=== PATIENT | female | born 1965 | race Caucasian/White ===

== ENCOUNTER 2022-04-26 18:16 | Emergency (ER) | payer MEDICARE, OTHER, SELFPAY ==
[2022-04-26] VITALS (10 sets, daily range): BP systolic 123–145; BP diastolic 74–88; PULSE 67–90; RESP 14–19; O2SAT 94–99
--- NOTE | ~2022-04-26 | XR_ITS ---
XR chest 1V portable 04/26/2022 19:32 Indication: Status post fall. Chest pain. Procedure: AP portable chest Comparison: No prior studies for comparison. Findings: Shallow inspiration with crowding of the pulmonary vessels. No focal air space disease, pul monary edema, pleural effusion or suspected pneumothorax. Impression: 1: No acute cardiopulmonary disease. Reviewed, dictated and finalized at location A. E DRIVER SALESPERSON Impression: 1: No acute cardiopulmonary disease.
--- NOTE | ~2022-04-26 | CT_ITS ---
EXAMINATION: CT BRAIN W/O DATE: 04/26/2022 19:21 INDICATION: Status post trauma. Head injury. TECHNIQUE: Computed tomography (CT) of the head was performed without intravenous contrast. The dose- length product was 756.67 mGy-cm. Automated exposure control and iterative reconstruction technique w ere employed. COMPARISON: No prior studies for comparison. FINDINGS: Normal brain parenchymal volume for age. Normal menjivar-white differentiation. No acute intrac ranial hemorrhage, infarction, mass or mass effect. There are scattered mild periventricular and subc ortical white matter changes, most likely related to small vessel ischemic disease (microangiopathy). There is intracranial atherosclerosis. No ventriculomegaly or midline shift. Midline sagittal images demonstrate a normal corpus callosum, c raniovertebral junction and sella turcica. Basilar cisterns are patent. Paranasal sinuses and mastoids are pneumatized. No depressed skull fractures. There are nasal fractur es. IMPRESSION: 1. No acute intracranial abnormality. 2: Nasal fractures. Reviewed, dictated and finalized at location A. TRANSITION MGR
--- NOTE | ~2022-04-26 | CT_ITS ---
EXAMINATION: CT facial & cervical spine wo DATE: 04/26/2022 19:22 INDICATION: Status post trauma. Facial pain. TECHNIQUE: Computed tomography (CT) of the maxillofacial region and cervical spine was performed with out intravenous contrast. The dose-length product was 559.97 mGy-cm. Automated exposure control and i terative reconstruction technique were employed. COMPARISON: None FINDINGS: MAXILLOFACIAL CT: There are minimally displaced nasal fractures with overlying soft tissue swelling. There is osteoarth ritis of the temporomandibular joints. No air-fluid levels in the paranasal sinuses. Orbits are intac t. No orbital soft tissue abnormality. No other facial fractures. CERVICAL SPINE CT: Vertebral body heights are maintained. Craniovertebral junction within normal limits. Odontoid proces s is normal. No evidence for perched facet. Spinous processes are normal. There is mild multilevel un cinate hypertrophy. No acute fracture or traumatic malalignment. IMPRESSION: 1. Minimally displaced nasal fractures. 2: No acute abnormality of the cervical spine. Reviewed, dictated and finalized at location A. ERS SALESPERSON
--- NOTE | ~2022-04-26 | XR_ITS ---
XR knee LT 3V 04/26/2022 19:33 Indication: Left knee pain after fall Procedure: 3 views left knee Comparison: No prior studies for comparison. Findings: There is mild tricompartment osteoarthritis of the left knee. No fracture or traumatic maulik lignment. No significant joint effusion. Impression: 1: No acute fracture. Reviewed, dictated and finalized at location A. ITAL CARRIER Impression: 1: No acute fracture.
--- NOTE | 2022-04-26 18:41 | PC.NURSE ---
Patient placed in c-collar and trauma communicated to Dr. Silva.
[2022-04-26] MEDS: ONDANSETRON INJ 4 MG/2 ML VIAL IV PUSH ×2 (18:58→20:39)
[2022-04-26] MEDS: SODIUM CHLORIDE 0.9% IV 1,000 ML 999 ML IV CONT (18:58)
[2022-04-26] MEDS: fentaNYL CITRATE INJ (*CRX) 100 MCG/2 ML VIAL 75 MCG IV PUSH (18:58)
[2022-04-26 19:09] LABS: Basophils Percent Auto 0.5 % (0.2-1.2); Eosinophils Absolute Auto 0.5 K/mm3 (0-0.3); Eosinophils Percent Auto 5.6 % (0-4.4); Hematocrit 39.8 % (37.0-47.0); Hemoglobin 13.2 g/dL (12.0-15.0); Immature Granulocyte Absolute 0.03 K/mm3 (0.00-0.031); Immature Granulocyte Percent A 0.4 % (0-0.5); Lymphocytes Absolute Auto 1.58 K/mm3 (0.9-3.2); Lymphocytes Percent Auto 19.8 % (18.3-44.2); Mean Corpuscular HGB Conc 33.2 g/dl (32-36); Mean Corpuscular Hemoglobin 30.8 pg (26-34); Mean Corpuscular Volume 92.8 fl (80-100); Mean Platelet Volume 9.7 fl (7.4-10.4); Monocytes Percent Auto 12.1 % (2.6-8.5); Neutrophils Absolute Auto 4.9 K/mm3 (1.3-6.7); Neutrophils Percent Auto 61.6 % (45.5-73.1); Platelet Count Result 245 k/mm3 (150-375); Red Blood Count 4.29 M/mm3 (4.2-5.4); Red Cell Distribution Width 12.8 % (11.5-14.5)
[2022-04-26 19:24] LABS: Ethanol 45 mg/dL (<10); INR 1.4; Partial Thromboplastin Time 26.8 SECONDS (22.3-36.8); Prothrombin Time 16.2 Seconds (11.1-14.7)
[2022-04-26 19:25] LABS: Alanine Aminotransferase 22 U/L (6-35); Albumin Level 4.1 g/dL (3.5-5.1); Alkaline Phosphatase 107 U/L (38-126); Anion Gap 9 mmol/L (8-16); Aspartate Amino Transferase 35 U/L (14-36); Bilirubin,Total 0.5 mg/dL (0.2-1.3); Blood Urea Nitrogen 18 mg/dL (7-17); Calcium 8.7 mg/dL (8.4-10.2); Carbon Dioxide 28 mmol/L (22-30); Chloride 104 mmol/L (98-107); Estimated CRCL calculation 75 ml/min; Estimated Glomerular Filt Rate > 60; Glucose 101 mg/dL (65-110); Potassium 3.4 mmol/L (3.4-5.0); Sodium 141 mmol/L (137-145)
--- NOTE | 2022-04-26 19:28 | ED.FALL ---
HPI - Fall General Chief Complaint: Fall Stated Complaint: fall/facial injury Time Seen by Provider: 04/26/22 18:34 History of Present Illness HPI Narrative: Patient is a 56-year-old female presenting after a fall. Patient states that she was walking in the parking lot of [employer] when she tripped on a pothole and fell straight forward. She landed on her face. She did not lose consciousness. She was able to drive home and when her saw the abrasions on her face he made her come to the ER. Patient does admit to having 1 alcoholic beverage today. She complains of facial pain as well as neck pain. No abdominal pain, nausea or vomiting. Complains of pain in her left knee as well. Related Data Allergies Allergy/AdvReac Type Severity Reaction Status Date / Time erythromycin base Allergy Rash Verified 04/26/22 18:32 Sulfa (Sulfonamide Allergy Dyspnea / Verified 04/26/22 18:31 Antibiotics) SOB Review of Systems Review of Systems: All systems reviewed & are unremarkable except as noted in HPI and below Exam Narrative: GENERAL: Female laying in bed with her eyes closed due to pain HEAD: Normocephalic, abrasion to nasal bridge and upper lip EYES: PERRLA and EOMI. ENT: Nares clear, no rhinorrhea or epistaxis. Mucous membranes moist. large laceration through inferior labial frenulum along inferior aspect of inner lower lip NECK: Supple. C-collar in place CHEST: Clear to auscultation. No respiratory distress. HEART: Regular rate and rhythm. ABDOMEN: Soft, nontender, nondistended EXTREMITIES: Normal range of motion. No edema. SKIN: Warm, dry, no rash. Abrasion over left knee NEURO: No focal deficits. Alert and oriented x3. PSYCH: Normal mood and affect. Course Vital Signs Vital signs: Vital Signs Pulse Rate 70 04/26/22 18:23 Respiratory Rate 18 04/26/22 18:23 Blood Pressure 142/88 H 04/26/22 18:23 Pulse Oximetry 99 04/26/22 18:23 Oxygen Delivery Room Air 04/26/22 18:23 Pulse Rate 80 04/26/22 22:00 Respiratory Rate 19 04/26/22 22:00 Blood Pressure 130/74 04/26/22 22:00 Pulse Oximetry 99 04/26/22 22:00 Oxygen Delivery Room Air 04/26/22 18:23 MDM - Fall MDM Narrative Medical decision making narrative: Patient is a 56-year-old female presenting after a fall. Vitals are within normal limits. Exam remarkable for the above. Imaging is remarkable for nondisplaced nasal bone fractures. No mandibular fractures or dislocation. Patient continues to have significant intraoral pain. Viscous lidocaine was applied to the inner lower lip which allowed more thorough examination. She has a very large laceration along the inferior aspect of the inferior dental arch that extends through the inferior labial frenulum. This is a large defect that I do not feel comfortable repairing. Speaking with [facility] for transfer for plastic surgery or oral maxillofacial surgery. Spoke with ENT at [facility] who has accepted the patient for ED to ED transfer. I spoke with Dr. Fuller who has accepted the patient for transfer. Differential Diagnosis Differential diagnosis: Likely other (mechanical fall, closed head injury, broken facial bones, laceration, abrasions, head bleed) Lab Data 04/26/22 19:01 04/26/22 19:01 Labs: Lab Results 04/26/22 04/26/22 04/26/22 Range/Units 19:01 19:01 19:01 WBC 8.0 (4.5-10.0) K/mm3 RBC 4.29 (4.2-5.4) M/mm3 Hgb 13.2 (12.0-15.0) g/dL Hct 39.8 (37.0-47.0) % MCV 92.8 (80-100) fl MCH 30.8 (26-34) pg MCHC 33.2 (32-36) g/dl RDW 12.8 (11.5-14.5) % Plt Count 245 (150-375) k/mm3 MPV 9.7 (7.4-10.4) fl Immature Gran % (Auto) 0.4 (0-0.5) % Neut % (Auto) 61.6 (45.5-73.1) % Lymph % (Auto) 19.8 (18.3-44.2) % Gaines % (Auto) 12.1 H (2.6-8.5) % Eos % (Auto) 5.6 H (0-4.4) % Baso % (Auto) 0.5 (0.2-1.2) % Lymph # (Auto) 1.58 (0.9-3.2) K/mm3 Gaines # (Auto) 1.0 H
--- NOTE | 2022-04-26 19:34 | PC.NURSE ---
Patient report given to LEO Flowers. All questions answered and care of patient transferred.
--- NOTE | 2022-04-26 19:40 | PC.NURSE ---
TDAP not administered as patient reports her Tetanus is UTD.
--- NOTE | 2022-04-26 19:42 | PC.NURSE ---
assumed care of pt. at this time. report from LEO Joy
[2022-04-26] MEDS: LIDOCAINE HCL 2% VISC SOLN 15 ML UDC PO (20:37)
[2022-04-26] MEDS: HYDROmorphone HCL INJ (*CRX) 1 MG/ML SYR 0.5 MG IV PUSH ×2 (20:40→21:56)
== END 2022-04-26 22:13 | disposition short-term general hospital (02) ==
PROVIDERS: Emergency Provider Emergency Medicine
DX: S02.2XXA Fracture of nasal bones, initial encounter for closed fracture (principal); S01.512A Laceration without foreign body of oral cavity, initial encounter; S00.511A Abrasion of lip, initial encounter; S80.212A Abrasion, left knee, initial encounter; W01.0XXA Fall on same level from slipping, tripping and stumbling without subsequent striking against object, initial encounter
CPT/HCPCS: 36415; 70450; 70486; 71045; 72125; 73562; 80053; 80307; 85025; 85610; 85730; 96361; 96374; 96375; 96376; 99285; J1170; J2405; J3010; J7030; L0140